=== PATIENT | female | born 1990 | race African-American/Black ===

== ENCOUNTER 2021-10-08 01:38 | Observation (INO) | payer OTHER, BC ==
[2021-10-08] MEDS ORDERED: Promethazine HCl 25 MG/ML VIAL IM PRN (02:31)
[2021-10-08] MEDS ORDERED: Ondansetron PF 4 MG/2 ML Vial IVP PRN (02:31)
[2021-10-08] MEDS ORDERED: Cyclobenzaprine 10 MG TAB PO PRN ×2 (02:34→07:08)
[2021-10-08] MEDS ORDERED: traMADol HCl 50 MG TAB PO PRN (02:34)
[2021-10-08] MEDS ORDERED: Sodium Chloride 0.9% 1,000 ML IV SCH (03:00)
[2021-10-08 06:05] VITALS: BMI 22.5
[2021-10-08 06:20] LABS: #Eosinphils 0.1 thou/uL (0.0-0.7); #Lymphocytes 2.1 thou/uL (1.20-3.40); #Monocytes 0.8 thou/uL (0.11-0.59); #Neutrophils 7.7 thou/uL (1.40-6.50); %Basophils 0.2 % (0.0-1.0); %Eosinophils 0.5 % (0.0-10.0); %Lymphocytes 19.4 % (21.0-51.0); %Monocytes 7.3 % (0.0-10.0); %Neutrophils 72.6 % (42.0-75.0); Hemoglobin 10.5 g/dL (12.0-16.0); Mean Corpuscular HGB CONC 33.1 g/dL (32.0-36.0); Mean Corpuscular Volume 84.6 fL (78.0-98.0); Mean Platelet Volume 8.7 fL (7.4-10.4); Platelet Count 274 thou/uL (130-400); RBC Distribution Width 14.9 % (11.5-14.5); Red Blood Cell (RBC) Count 3.74 mill/uL (4.20-5.40); White Blood Cell (WBC) Count 10.5 thou/uL (4.8-10.8)
[2021-10-08] MEDS: Acetaminophen 500 MG TAB PO SCH ×4 (06:40→17:49)
[2021-10-08] MEDS: traMADol HCl 50 MG TAB PO SCH ×3 (06:40→17:48)
[2021-10-08 07:08] LABS: Anion Gap 12 mmol/L (10-20); BUN (Urea Nitrogen) 6 mg/dL (7.0-18.7); Calc. Creatinine Clearance 99 mL/min (70-130); Calcium 8.4 mg/dL (7.8-10.44); Carbon Dioxide 24 mmol/L (22-29); Chloride 105 mmol/L (98-107); Glucose 91 mg/dL (70-105); Magnesium 1.6 mg/dL (1.6-2.6); Sodium 137 mmol/L (136-145)
[2021-10-08 07:09] LABS: Phosphorus 3.7 mg/dL (2.3-4.7)
[2021-10-08] MEDS ORDERED: Senokot S 8.6-50 MG TAB PO SCH (09:00)
[2021-10-08] MEDS ORDERED: Famotidine 20 MG TAB PO SCH (09:00)
[2021-10-08] MEDS ORDERED: Pregabalin 25 MG CAP PO SCH (09:00)
[2021-10-08] MEDS ORDERED: Polyethylene Glycol 3350 17 GM Packet PO SCH (09:00)
[2021-10-08] MEDS ORDERED: Pregabalin 50 MG CAP PO SCH (09:00)
[2021-10-08] MEDS: Gabapentin 300 MG CAP PO SCH ×2 (09:04→15:33)
[2021-10-08 09:13] LABS: SARS-CoV-2 NAA Rapid Test Not Detected (NotDetected)
[2021-10-08] MEDS ORDERED: Scopolamine 1.5 mg/72 hour Patch TD SCH (11:00)
[2021-10-08] MEDS: Ibuprofen 200 MG TAB PO SCH ×2 (14:35→15:33)
[2021-10-08 20:22] VITALS: BP 113/75; TEMP 97.7
== END 2021-10-08 20:30 | disposition home or self-care (01) ==
LOC: SURG A 02:25
PROVIDERS: ADMIT Surgery; ATTEND Surgery
DX: S12.500A Unspecified displaced fracture of sixth cervical vertebra, initial encounter for closed fracture (principal); S12.600A Unspecified displaced fracture of seventh cervical vertebra, initial encounter for closed fracture; S06.0X0A Concussion without loss of consciousness, initial encounter; F10.129 Alcohol abuse with intoxication, unspecified; E83.42 Hypomagnesemia; Z79.899 Other long term (current) drug therapy; Z20.822 Contact with and (suspected) exposure to COVID-19; V49.9XXA Car occupant (driver) (passenger) injured in unspecified traffic accident, initial encounter
CPT/HCPCS: 36415; 80048; 83735; 84100; 85025; G0378; J7050; U0002